=== PATIENT | male | born 1970 | race Caucasian/White ===

== ENCOUNTER 2018-01-15 02:22 | Emergency (ER) | payer MEDICAID ==
[2018-01-15] MEDS: IBUPROFEN 600 MG TAB PO (04:14)
== END 2018-01-15 07:37 | disposition home or self-care (01) ==
LOC: FTE 02:22
DX: M79.671 Pain in right foot (principal); F17.210 Nicotine dependence, cigarettes, uncomplicated
CPT/HCPCS: 73630; 73630-LT; 99284-25

== ENCOUNTER 2018-05-09 03:19 | Emergency (ER) | payer MEDICAID | END 2018-05-09 08:35 | disposition home or self-care (01) | LOC: FTE 03:19 | DX: M79.601 Pain in right arm (principal); F17.210 Nicotine dependence, cigarettes, uncomplicated | CPT/HCPCS: 93971; 99284 ==

== ENCOUNTER 2018-05-16 02:31 | Emergency (ER) | payer MEDICAID | END 2018-05-16 03:46 | disposition home or self-care (01) | LOC: FTE 02:31 | DX: M79.602 Pain in left arm (principal); Z87.891 Personal history of nicotine dependence | CPT/HCPCS: 99283; Z7502 ==